=== PATIENT | female | born 1980 | race African-American/Black ===

== ENCOUNTER 2016-12-05 16:05 | Emergency (ER) | payer OTHER ==
--- NOTE | 2016-12-05 16:23 | PDOC ---
Rapid Medical Evaluation Time Seen by Provider: 12/05/16 16:20 Medical Evaluation: Allergies Allergy/AdvReac Type Severity Reaction Status Date / Time No Known Allergies Allergy Verified 12/05/16 16:20 12/05/16 16:20 I have performed a brief in-person evaluation of this patient. The patient presents with a chief complaint of: , 7-8 weeks by dates, s/ p initial routine US at [facility] in [place] this am and told she had "an empty sac" in her uterus and that they could not r/o ectopic. Denies abd pain or vag bleed Pertinent physical exam findings:Tachy but well guy w/ benign abd I have ordered the following:beta/T&S/ua/US The patient will proceed to the ED for further evaluation. 12/05/16 16:25 12/05/16 16:26
[2016-12-05 16:25] VITALS: TEMP 98.4; BMI 23.4
[2016-12-05 17:00] LABS: URINE APPEARANCE SLCLOUDY; URINE BLOOD NEGATIVE (NEGATIVE); URINE COLOR YELLOW; URINE GLUCOSE (UA) 1+ (NEGATIVE); URINE KETONE TRACE (NEGATIVE); URINE NITRITE NEGATIVE (NEGATIVE); URINE UROBILINOGEN 2.0 E.U/dl E.U./dl (0.2-1.0)
[2016-12-05 17:09] LABS: URINE LEUK ESTERASE 3+ (NEGATIVE); URINE PROTEIN 1+ (NEGATIVE)
[2016-12-05 17:13] LABS: URINE BACTERIA RARE /hpf (NONE SEEN); URINE MUCUS MODERATE; URINE RBC 6 /hpf (0-3); URINE WBC 34 /hpf (3-5)
--- NOTE | 2016-12-05 17:51 | PDOC ---
History of Present Illness - General History Source: Patient Exam Limitations: No Limitations - History of Present Illness Initial Comments: 12/05/16 17:51 CHIEF COMPLAINT: Sent by OB HISTORY OF PRESENT ILLNESS: This is a 36 year old female , LMP 10/11, who presented to [facility] today to request a termination. There she was told that she had a blighted ovum, but that there was another ultrasound finding (patient unclear on the details) that might suggest ectopic . She denies pelvic pain, vaginal bleeding, or any other symptoms. V/s on arrival are notable for P 116. REVIEW OF SYSTEMS: GENERAL/CONSTITUTIONAL: No fever or chills. No weakness. No weight change. HEAD, EYES, EARS, NOSE AND THROAT: No change in vision. No ear pain or discharge. No sore throat. CARDIOVASCULAR: No chest pain or palpitations. RESPIRATORY: No cough, wheezing, or shortness of breath. GASTROINTESTINAL: No nausea, vomiting, diarrhea or constipation. GENITOURINARY: No dysuria, frequency, or change in urination. "Beige" vaginal discharge. MUSCULOSKELETAL: No joint or muscle swelling or pain. No neck or back pain. SKIN: No rash or easy bruising. NEUROLOGIC: No headache, vertigo, loss of consciousness, or loss of sensation. PSYCHIATRIC: No depression or anxiety. ENDOCRINE: No increased thirst. No abnormal weight change. HEMATOLOGIC/LYMPHATIC: No anemia, easy bleeding, or history of blood clots. ALLERGIC/IMMUNOLOGIC: No hives or skin allergy. No latex allergy. PHYSICAL EXAM: GENERAL: The patient is awake, alert, and fully oriented, in no acute distress. ENT: Pupils equal, round and reactive to light, extraocular movements intact, sclera anicteric, conjunctiva clear. Neck supple. LUNGS: Clear to auscultation bilaterally. Normal excursion. No respiratory distress or use of accessory muscles. CV: RRR, S1/S2, no MRG. Cap refill < 2 sec. ABDOMEN: Soft, non-distended, non-tender. EXTREMITIES: Normal range of motion, no edema. NEUROLOGICAL: Normal speech, normal gait. CN II-XII grossly intact. PSYCH: Normal mood, normal affect. SKIN: Warm, dry, normal turgor, no rashes or lesions noted. : Normal external exam. Moderate thick, pinkish-white, nonmalodorous vaginal discharge. No CMT or adnexal tenderness. <Jessica Lucas - Last Filed: 12/05/16 18:51> <Katharine Morris - Last Filed: 12/05/16 21:11> - General Chief Complaint: Pain Stated Complaint: 7 WKS PREG PCP SENT/ASSESSMENT Time Seen by Provider: 12/05/16 16:20 Past History - Past Medical History Other medical history: NONE - Psycho/Social/Smoking Cessation Hx Anxiety: No Suicidal Ideation: No Smoking History: Never smoked Have you smoked in the past 12 months: No Information on smoking cessation initiated: No Hx Alcohol Use: No Drug/Substance Use Hx: No Substance Use Type: None <Jessica Lucas - Last Filed: 12/05/16 18:51> <Katharine Morris - Last Filed: 12/05/16 21:11> - Past Medical History Allergies/Adverse Reactions: Allergies Allergy/AdvReac Type Severity Reaction Status Date / Time No Known Allergies Allergy Verified 12/05/16 16:20 Home Medications: Ambulatory Orders Cephalexin [Keflex] 500 mg PO BID #10 capsule 12/05/16 *Physical Exam - Vital Signs Last Vital Signs Temp Pulse Resp BP Pulse Ox 98.4 F 116 H 18 109/61 100 12/05/16 16:21 12/05/16 16:21 12/05/16 16:21 12/05/16 16:21 12/05/16 16:21 <ShayyJessica - Last Filed: 12/05/16 18:51> - Vital Signs Last Vital Signs Temp Pulse Resp BP Pulse Ox 98.4 F 116 H 18 109/61 100 12/05/16 16:21 12/05/16 16:21 12/05/16 16:21 12/05/16 16:21 12/05/16 16:21 <Katharine Morris - Last Filed: 12/05/16 21:11> ED Treatment Course - LABORATORY CBC & Chemistry Diagram: 12/05/16 17:30 12/05/16 17:30 - ADDITIONAL ORDERS Additional order review: Laboratory Results 12/05/16 16:30 Urine Color Yellow Urine Appearance Slcloudy Urine pH 5.0 Urine Protein 1+ H Urine Glucose (UA) 1+ H Urine Ketones Trace H Urine Blood Negative Urine Nitrite Negative Urine Bilirubin 2.0 Urine Urobilinogen 2.0 e.u/dl H Ur Leukocyte Esterase 3+ H <Jessica Lucas - Last Filed: 12/05/16 18:51> - LABORATORY CBC & Chemistry Diagram: 12/05/16 17:30 12/05/16 17:30 - ADDITIONAL ORDERS Additional order review: Laboratory Results 12/05/16 12/05/16 12/05/16 20:10 17:30 16:30 Sodium 139 Potassium 4.0 Chloride 105 Carbon Dioxide 23 Anion Gap 11 BUN 6 L Creatinine 0.7 Random Glucose 133 H Calcium 9.1 Beta HCG, Quant 538835.7 Urine Color Urine Appearance Urine pH Ur Specific Clyde Urine Protein Urine Glucose (UA) Urine Ketones Urine Blood Urine Nitrite Urine Bilirubin Urine Urobilinogen Ur Leukocyte Esterase Urine RBC Urine WBC Ur Epithelial Cells Urine Bacteria Urine Mucus Blood Type O POSITIVE Antibody Screen Negative 12/05/16 16:30 Sodium Potassium Chloride Carbon Dioxide Anion Gap BUN Creatinine Random Glucose Calcium Beta HCG, Quant Urine Color Yellow Urine Appearance Slcloudy Urine pH 5.0 Ur Specific Clyde 1.025 Urine Protein 1+ H Urine Glucose (UA) 1+ H Urine Ketones Trace H Urine Blood Negative Urine Nitrite Negative Urine Bilirubin 2.0 Urine Urobilinogen 2.0 e.u/dl H Ur Leukocyte Esterase 3+ H Urine RBC 6 Urine WBC 34 Ur Epithelial Cells Many Urine Bacteria Rare Urine Mucus Moderate Blood Type Antibody Screen 12/05/16 17:30 RBC 4.35 MCV 89.4 MCHC 32.3 RDW 13.9 MPV 7.7 Neutrophils % 60.6 Lymphocytes % 26.9 Monocytes % 8.8 Eosinophils % 3.3 Basophils % 0.4 - Medications Given in the ED: ED Medications Discontinued Medications Generic Name Dose Route Start Last Admin Trade Name Freq PRN Reason Stop Dose Admin Cephalexin HCl 500 mg 12/05/16 18:48 12/05/16 19:28 Keflex - PO 12/05/16 18:49 500 mg ONCE ONE Administration <Katharine Morris - Last Filed: 12/05/16 21:11> Medical Decision Making - Medical Decision Making 12/05/16 18:37 A/P: 36 year old female, 1st trimester , presenting for r/o ectopic. 1. UA/culture 2. Basic labs 3. Transvaginal u/s 4. Genital culture and GC (discharge) 5. IVF (tachycardia) 6. Re-assess UA with 3+ leukesterase. Culture sent. Will treat with Keflex. 12/05/16 18:51 Bhcg 116K <Jessica Lucas - Last Filed: 12/05/16 18:51> *DC/Admit/Observation/Transfer <Jessica Lucas - Last Filed: 12/05/16 18:51> - Discharge Dispostion Admit: No <Katharine Morris - Last Filed: 12/05/16 21:11> Diagnosis at time of Disposition: Missed - Discharge Dispostion Disposition: HOME Condition at time of disposition: Stable - Prescriptions Prescriptions: Cephalexin [Keflex] 500 mg PO BID #10 capsule - Referrals Referrals: Todd Drake MD [Staff Physician] - - Patient Instructions Printed Discharge Instructions: DI for Threatened , Miscarriage Additional Instructions: FOLLOW UP WITH DR. DRAKE ([employer]) THIS WEEK. CALL TO SCHEDULE APPOINTMENT, OR FOLLOW UP WITH YOUR [employer] FOR SERIAL HCG BLOOD TESTING. YOU MAY ALSO RETURN TO THE EMERGENCY DEPARTMENT IF THE FIRST TWO OPTIONS ARE NOT LIKELY. THIS SHOULD BE DONE WITHIN 48 HOURS. TAKE YOUR MEDICATIONS PRESCRIBED. NO INTERCOURSE AT THIS TIME. Print Language: HEBREW
[2016-12-05] MEDS ORDERED: SODIUM CHLORIDE 1,000 ML IV SCH (18:00)
[2016-12-05 18:14] LABS: BASOPHIL 0.4 % (0-2.0); EOSINOPHIL 3.3 % (0-4.5); MCH 28.9 pg (25.7-33.7); MCHC 32.3 g/dl (32.0-36.0); MEAN CELL VOLUME 89.4 fl (80-96); MEAN PLT VOLUME 7.7 fl (7.5-11.1); NEUTROPHILS 60.6 % (42.8-82.8); PLATELET COUNT 309 K/MM3 (134-434); RDW 13.9 % (11.6-15.6); WHITE BLOOD COUNT 7.2 K/mm3 (4.0-10.0)
[2016-12-05] MEDS ORDERED: CEPHALEXIN MONOHYDRATE 500 MG CAPSULE (UD) PO ONE (18:48)
[2016-12-05 18:58] LABS: ANION GAP 11 (8-16); CALCIUM 9.1 mg/dL (8.5-10.1); CO2 23 mmol/L (21-32); CREATININE 0.7 mg/dL (0.55-1.02); GLUCOSE,RANDOM 133 mg/dL (74-106)
[2016-12-05] MEDS ORDERED: CEPHALEXIN MONOHYDRATE 250 MG CAPSULE (FP) ONE (19:24)
[2016-12-05 21:45] VITALS: BP 110/75; PULSE 89
== END 2016-12-05 21:45 | disposition home or self-care (01) ==
LOC: JER 16:05
PROC: 3E0337Z Introduction of Electrolytic and Water Balance Substance into Peripheral Vein, Percutaneous Approach (ICD-10-PCS; principal; 2016-12-05)
DX: O02.1 Missed abortion (principal); N39.0 Urinary tract infection, site not specified
CPT/HCPCS: 36415; 76817-TC; 80048; 81003; 81015; 84702; 85025; 86850; 86900; 86901; 87070; 87077; 87086; 87186; 87205; 87491; 87591; 96360; 96361; 99284-25

== ENCOUNTER 2016-12-07 17:21 | Emergency (ER) | payer OTHER ==
[2016-12-07 17:29] VITALS: BP 112/56; PULSE 94; TEMP 98.3; BMI 23.4
--- NOTE | 2016-12-07 18:24 | PDOC ---
History of Present Illness - General Chief Complaint: [facility] Stated Complaint: REVISIT, BLOODWORK Time Seen by Provider: 12/07/16 18:23 History Source: Patient Exam Limitations: No Limitations - History of Present Illness Initial Comments: 12/07/16 18:24 My Chief Complaint: History of Present Illness: Pt. is a 36 y/o female today for repeat beta hCG. Patient initially had a US at [facility] in [place] on 12/05/16 and told she had "an empty sac" in her uterus and that they could not r/o ectopic. She presented here on 12/05/2016, had a betaHCG of of 116,685.7. Patient also had a transvaginal ultrasound that revealed an intrauterine gestational sac estimated gestational age of 8 weeks. No pole or yolk sac identified. Findings were consistent with a blighted ovum versus a missed . Clinical correlation recommended and correlation with serial quantitative serum beta hCG and a close follow-up ultrasound is needed. Left ovary simple cyst measuring 3.92.9 cm. There is no free fluid in the cul-de- sac. No adnexal masses identified per Dr. Valverde. She reports that she was giving medication at [facility] due to having a missed . Patient reports having vaginal bleeding yesterday that was heavy at times with small clots and today has less vaginal bleeding. Patient reports yesterday having abdominal cramping lower and today none. Patient denies any fever or any discomfort presently. LMP 10/11/16. Pt. is a G2, P1 12/07/16 19:28 12/07/16 19:35 12/07/16 19:36 Timing/Duration: other (vaginal bleeding ) Severity: mild Associated Symptoms: reports: other (vaginal bleeding X 2 days) Past History - Past Medical History Allergies/Adverse Reactions: Allergies Allergy/AdvReac Type Severity Reaction Status Date / Time No Known Allergies Allergy Verified 12/07/16 17:29 Home Medications: Ambulatory Orders Cephalexin [Keflex] 500 mg PO BID #10 capsule 12/05/16 Other medical history: NONE - Reproductive History (#): 2 Para: 0 - Psycho/Social/Smoking Cessation Hx Anxiety: No Suicidal Ideation: No Smoking History: Never smoked Have you smoked in the past 12 months: No Hx Alcohol Use: No Drug/Substance Use Hx: No Substance Use Type: None Review of Systems - Review of Systems Able to Perform ROS?: Yes Constitutional: No: Symptoms Reported HEENTM: No: Symptoms Reported Respiratory: No: Symptoms reported Cardiac (ROS): No: Symptoms Reported ABD/GI: No: Symptoms Reported : Yes: Other (vaginal bleeding for 2 days ) Integumentary: No: Symptoms Reported *Physical Exam - Vital Signs Last Vital Signs Temp Pulse Resp BP Pulse Ox 98.3 F 94 H 20 112/56 98 12/07/16 17:25 12/07/16 17:25 12/07/16 17:25 12/07/16 17:25 12/07/16 17:25 - Physical Exam General Appearance: Yes: Appropriately Dressed Respiratory/Chest: positive: Lungs Clear, Normal Breath Sounds. negative: Chest Tender, Respiratory Distress Cardiovascular: positive: Regular Rhythm, Regular Rate, S1, S2 Gastrointestinal/Abdominal: positive: Normal Bowel Sounds, Soft. negative: Organomegaly, Distended, Guarding, Rebound, Tenderness, Hepatomegaly, Spleenomegaly Integumentary: positive: Normal Color Neurologic: positive: Alert, Normal Response, Responsive Medical Decision Making - Medical Decision Making 12/07/16 19:36 Pt. is a 36 y/o female today for repeat beta hCG. Patient initially had a US at [facility] in [place] on 12/05/16 and told she had "an empty sac " in her uterus and that they could not r/o ectopic. She presented here on 12/05, had a betaHCG of of 116,685.7. Patient also had a transvaginal ultrasound that revealed an intrauterine gestational sac estimated gestational age of 8 weeks. No pole or yolk sac identified. Findings were consistent with a blighted ovum versus a missed . Clinical correlation recommended and correlation with serial quantitative serum beta hCG and a close follow-up ultrasound is needed. Left ovary simple cyst measuring 3.92.9 cm. There is no free fluid in the cul-de-sac. No adnexal masses identified per Dr. Valverde. She reports that she was giving medication at [facility] due to having a missed . Patient reports having vaginal bleeding yesterday that was heavy at times with small clots and today has less vaginal bleeding. Patient reports yesterday having abdominal cramping lower and today none. Patient denies any fever or any discomfort presently. LMP 10/11/16. Pt. is a G2, P1 missed PLAN: [facility] [address].7 tranvaginal US venously visualize intrauterine gestational sacs is no longer seen. Prominent endometrial stripe with heterogenous echotexture for which follow-up is needed to rule out blood clots versus retained products of conception. Left ovarian simple cyst/corpus luteum cyst measuring 32.8 cm Patient to follow up with her [employer] as soon as possible copies of ultrasound transvaginal from today and on 12/05/16 and beta hCG done today and on given to patient to give to her doctor patient to follow up within next 2 days. 12/07/16 20:58 12/07/16 21:24 *DC/Admit/Observation/Transfer Diagnosis at time of Disposition: Missed - Discharge Dispostion Disposition: HOME Condition at time of disposition: Stable - Patient Instructions Additional Instructions: Copies of ultrasounds and blood work given to you to give to your [employer] as soon as possible within the next 2 days for repeat labs Return to emergency room if any fever or abdominal pain or any new symptoms develop Patient voiced understanding of discharge instructions all questions were answered
--- NOTE | 2016-12-09 12:23 | PDOC ---
Patient Follow-up (Call Back) - Post ED Follow - Up Condition at time of discharge: Stable Disposition at time of original discharge: HOME Reason for Call Back: Abnwl. Microbiology (Patient's phone number on record is non-working, message left on 's phone to call back to assess condition positive genital culture for yeast.)
== END 2016-12-07 21:29 | disposition home or self-care (01) ==
LOC: JERFT 17:21
DX: O02.1 Missed abortion (principal); N83.12 Corpus luteum cyst of left ovary
CPT/HCPCS: 36415; 76817-TC; 84702; 99281-25